=== PATIENT | female | born 1975 | race Caucasian/White ===

== ENCOUNTER → 2017-12-16 11:57 | Outpatient (REF) | payer OTHER, SELFPAY ==
[2017-12-16 19:16] LABS: TSH (W/Ref FT4) 2.02 uIU/mL (0.358-3.74)
== END ==
LOC: NCHCN 11:57
PROVIDERS: PCP Nurse Practitioner Family; Visit Provider Nurse Practitioner Family
DX: R53.83 Other fatigue (principal)
CPT/HCPCS: 84443

== ENCOUNTER 2018-09-22 09:51 | Outpatient (CLI) | payer OTHER, SELFPAY ==
[2018-09-22 12:19] LABS: BUN 12 mg/dL (7-18); CO2 28.1 mmol/L (21.0-32.0); CREATININE 0.94 mg/dL (0.55-1.02); Calcium 9.1 mg/dL (8.5-10.1); Cholesterol 228 mg/dL (50-200); Glucose 91 mg/dL (70-100); HDL Cholesterol 65 mg/dL (40-60); LDL CHOLESTEROL 147 mg/dL (<100); Triglyceride 45 mg/dL (30-150)
[2018-09-22 12:24] LABS: Anion Gap 7.9 mmol/L (3-11); Chloride 104 mmol/L (98-107); Potassium 4.5 mmol/L (3.5-5.1); Sodium 140 mmol/L (136-145)
== END 2018-09-22 10:11 ==
PROVIDERS: PCP Nurse Practitioner Family; Visit Provider Nurse Practitioner Family
DX: Z00.00 Encounter for general adult medical examination without abnormal findings (principal); Z13.228 Encounter for screening for other metabolic disorders; Z13.220 Encounter for screening for lipoid disorders
CPT/HCPCS: 36415; 80048; 80061; 83721

== ENCOUNTER 2020-03-15 06:26 | Day surgery (SDC) | payer OTHER, SELFPAY ==
[2020-03-15 06:36] VITALS: BP 116/63; PULSE 89; RESP 16; TEMP 36.2; O2SAT 100
[2020-03-15] MEDS: Lactated Ringers 1,000 ML 80 ML IV (06:57)
--- NOTE | 2020-03-15 07:09 | PDOC.DSDIS_ITS ---
Discharge Plan Disposition Patient Disposition: HOME Condition: Good Discharge Details Reason For Visit: Colonoscopy Attending Provider: Yuliana Mcgraw Primary Care Provider: Keisha Graves Home Meds and New Rx's Prescriptions: Continued multivitamin Tablet 1 tab PO DAILY RF: 0 Discharge Instructions Additional Instructions: Findings: Two rectal polyps were removed. My office will contact you with biop sy results. Rare diverticulosis pockets were noted. Follow up: Plan for a colonoscopy in 5 years pending biopsy results. Please call if you develop: fevers >101.5 Nausea or Vomiting Abdominal pain that is not transient DAY SURGERY UNIT POST COLONOSCOPY INSTRUCTIONS 1. Because there will be medication in your system for the next 24 hours, you may feel a little sleepy. Your coordination will be affected. Therefore: a. Do not drive or operate dangerous equipment for 24 hours. b. Do not drink alcohol beverages for 24 hours (not even beer). c. Plan to go home and rest for the day. 2. Generally there are no restrictions on your activity after a day or so has gone by, but you may feel a bit fatigued for a few days. 3 After you arrive home you may have a light meal and return to a normal diet as you can tolerate it without feeling sick to your stomach. 4. After surgery, you may feel pain or discomfort. This should be only transient, but if it persists please contact your doctor. 5. If there are any questions regarding the findings of your procedure, please feel free to contact your doctor. 6. If you are unable to contact your doctor with a problem, contact the hospital at [phone]. 7. Continue all your regular medications unless directed otherwise. I understand the above instructions and have no questions. Signature of Patient or Responsible Adult Escort Date/Time Name of Responsible Adult Escort Signature of Nurse Date/Time Activity:: Activity as Tolerated Diet:: As Tolerated Discharge Orders Discharge Orders: Discharge Order (Routine); Ordered 03/15/20 Ordered By: Yuliana Mcgraw DS: Diagnosis Discharge Diagnosis (1) Rectal polyp: Status: Acute (2) Diverticulosis: Status: Acute
--- NOTE | 2020-03-15 07:10 | W.COLOREPORT ---
Colonoscopy Report Date of procedure: 03/15/20 Pre-op diagnosis general: FH rectal mass Post-op diagnosis procedure note: other (Rectal polyps, diverticulosis) Procedure: Colonoscopy with cold forceps polypectomy Surgeon: Yuliana Mcgraw Anesthesia proc note operative: MAC Indications: This 45 year old woman presents for her first colonoscopy. She had no symptoms. Her father had a rectal mass removed with colostomy placement. She is not certain if this was malignant. Procedure Description: The patient was placed in the left Wolf position. Propofol was titrated to sedation. Digital rectal examination revealed no abnormalities. The scope was advanced to the cecum without difficulty. The ileocecal valve and appendiceal orifice were clearly identified. The ileocecal valve was intubated to reveal a normal distal ileum. The prep was good. The scope was slowly withdrawn over the course of greater than 6 minutes with no abnormalities seen in the ascending, transverse, descending, sigmoid colon. A few diverticulosis pockets were noted in the sigmoid. In the rectum, two diminuitive polyps that appeared hyperplastic were removed with the cold forceps and sent in the same specimen container. The rectum was otherwise normal including on retroflexed view. The patient tolerated the procedure well and was stable to recovery. Plan for colonoscopy in 5 years based on family history.
--- NOTE | 2020-03-15 07:31 | BOWEL_PTH ---
PATIENT: Idalmis Bryant LOC: [facility] U#:[id number] AGE/SX: 45/F ROOM: RE03/15/[address]: Yuliana Mcgraw MD : 1975 BED: DIS: 03/15/2020 SPEC #: [id number] RECD: 03/15/20 09:04 STATUS: BARRY REHoward #: [id number] BARRY: 03/15/20 07:[address]: Yuliana Mcgraw DEPT: Surgical Specimen RECD BY: Ana Montoya ENTERED: 03/15/20 09:05 SP TYPE: Bowel OTHR DR: Keisha Graves Tissues: 1 - BIOPSY BOWEL Procedures: GROSS AND MICRO LEVEL 4 Comments: [id number] ([id number] [facility] [place]#)
[2020-03-15 08:10] VITALS: BP 103/53; PULSE 70; RESP 18; TEMP 36.5; O2SAT 100
== END 2020-03-15 08:52 | disposition home or self-care (01) ==
PROVIDERS: PCP Nurse Practitioner Family; Visit Provider Surgery
PROC: 0DJD8ZZ Inspection of Lower Intestinal Tract, Via Natural or Artificial Opening Endoscopic (ICD-10-PCS; CPT 45378; principal; 2020-03-15 07:30)
DX: Z12.11 Encounter for screening for malignant neoplasm of colon (principal); Z80.0 Family history of malignant neoplasm of digestive organs; K57.30 Diverticulosis of large intestine without perforation or abscess without bleeding; K62.1 Rectal polyp
CPT/HCPCS: 45380; 81025; 88305

== ENCOUNTER 2020-09-16 01:58 | Outpatient (CLI) | payer OTHER, SELFPAY ==
--- NOTE | 2020-09-16 15:43 | DI.MAMMO_ITS ---
Exam(s) MAMMO SCREENING EXAM: MAMMO SCREENING CLINICAL HISTORY: SCREENING, Z12.39. TECHNIQUE: Bilateral full field digital CC and MLO mammographic images were obtained with 3D tomosyn thesis and utilizing computer aided detection (CAD). COMPARISON: Prior outside mammogram performed April 2019 FINDINGS: Fibroglandular tissue pattern is again noted be dense, this decreasing sensitivity mammogram for find ing hidden underlying lesions. Asymmetric tissue posteriorly in left breast is noted, more evident than on prior studies. There are no new obvious spiculated masses nor malignant-appearing microcalcification groups in eithe r breast. No new significant architectural distortion or skin thickening-traction. IMPRESSION: Dense bilateral fibroglandular tissue. Slightly asymmetric tissue posteriorly in left breast. Recom mend bilateral screening breast ultrasound. BI-RADS Category 0 - Assessment Incomplete: Need additional imaging evaluation, specifically bilatera l complete screening breast ultrasound Breast Density - Category C - Heterogeneously dense Breast density Category C or D implies that the patient has dense breast tissue. Dense breast tissue can make it harder to find cancer on a mammogram. Dense breast tissue is also associated with an incr eased risk of breast cancer. This information about the result of the mammogram report was provided to the patient to raise their awareness. Use this report when you speak with the patient about their risks for breast cancer, which includes their family history. At that time, you may recommend additional screening tests (Ultrasoun d or MRI) as these tests may add significant information. A negative radiographic report should not delay biopsy if a dominant or clinically suspicious mass is present. Up to ten percent of cancers are not identified on mammography. A negative report may reinforce clinical impression. Adenosis and dense breasts may obscure an underlying neoplasm. False positive reports average 6 to 10%. Patient will receive a letter notifying them of these results.
== END 2020-09-16 02:18 ==
PROVIDERS: PCP Nurse Practitioner Family; Visit Provider Nurse Practitioner Women's Health
DX: Z12.31 Encounter for screening mammogram for malignant neoplasm of breast (principal)
CPT/HCPCS: 77063; 77067

== ENCOUNTER 2021-04-11 02:49 | Outpatient (CLI) | payer OTHER, SELFPAY ==
[2021-04-11 09:14] LABS: Abs Immature Grans 0.01 10^3/uL (0.0-0.06); Absolute Basophil Count 0.03 10^3/uL (0.0-0.2); Absolute Eosinophil Count 0.03 10^3/uL (0.0-0.7); Absolute Lymphocyte Count 1.55 10^3/uL (1.2-3.4); Absolute Monocyte Count 0.36 10^3/uL (0.1-0.8); Absolute Neutrophil Count 2.59 10^3/uL (1.2-6.7); Basophils % 0.7; Eosinophils % 0.7; HGB 11.9 g/dL (11.2-15.7); Immature Grans % 0.2; Lymphocytes % 33.9; MCH 31.7 pg (27.0-33.0); MCHC 33.1 % (32.0-36.0); MPV 10.2 fL (8.0-11.0); Monocytes % 7.9; Neutrophils % 56.6; Nucleated RBC 0 %; Platelet Count 229 10^3/uL (130-400); RBC 3.75 10^6/uL (3.93-5.22); RDW 12.3 % (11.7-14.6); RDW-SD 43.3 fL; WBC 4.57 10^3/uL (4.4-10.8)
[2021-04-11 09:15] LABS: ESR 1 mm/hr (0-20)
[2021-04-11 10:23] LABS: C-Reactive Protein < 0.05 mg/dL (0.0-0.3)
[2021-04-11 18:01] LABS: Rheumatoid Factor <8.6 IU/mL (<12.0)
[2021-04-14 11:18] LABS: Lyme Ab w Rflx to Lyme Confirm Negative (Negative)
[2021-04-14 15:49] LABS: ANA Interpretation Negative (Negative)
== END 2021-04-11 02:50 | disposition home or self-care (01) ==
LOC: LBO 02:50
PROVIDERS: PCP Nurse Practitioner Family; Visit Provider Optometrist
DX: H20.13 Chronic iridocyclitis, bilateral (principal)
CPT/HCPCS: 36415; 85652; 85025; 86038; 86140; 86431; 86618

== ENCOUNTER → 2021-11-12 01:39 | Outpatient (CLI) | payer OTHER, SELFPAY ==
--- NOTE | 2021-11-12 | DI.MAMMO_ITS ---
Exam(s) MAMMO SCREENING EXAM: MAMMO SCREENING CLINICAL HISTORY: SCREENING FOR BREAST CANCER, Z12.31 TECHNIQUE: Mammograms were interpreted according to the usual protocol including computer analysis w Panève CAD system, tomosynthesis and C-view imaging. COMPARISON: 2018 through 2020 FINDINGS: The breasts are composed of heterogeneously dense fibroglandular densities, Breast Density category C . No suspicious masses or suspicious microcalcifications are seen. There is mild scarring related to b ilateral breast reduction. No skin thickening or abnormal axillary lymph nodes are seen. There has been no significant change from prior exams. IMPRESSION: BI-RADS Category 1, Negative mammogram. Yearly screening mammography is recommended. Breast Density Category C, heterogeneously Dense. The mammogram demonstrates the patient's breast tissue is dense. Dense breast tissue is very common a nd is not abnormal but dense breast tissue can make it harder to find cancer on a mammogram. Also, de nse breast tissue may increase breast cancer risk. This information about the result of the mammogram report was provided to the patient to raise their awareness. Use this report when you speak with the patient about their risks for breast cancer, which includes their family history. At that time, you may recommend additional screening tests (Ultrasound or MRI) as they might be useful based on their r isk. A negative radiographic report should not delay biopsy if a dominant or clinically suspicious mass is present. Up to ten percent of cancers are not identified on mammography. A negative report may reinforce clinical impression. Adenosis and dense breasts may obscure an underlying neoplasm. False positive reports average 6 to 10%.
== END ==
PROVIDERS: PCP Nurse Practitioner Family; Visit Provider Nurse Practitioner Women's Health
DX: Z12.31 Encounter for screening mammogram for malignant neoplasm of breast (principal)
CPT/HCPCS: 77063; 77067

== ENCOUNTER 2022-09-14 19:22 | Outpatient (REF) | payer OTHER, SELFPAY ==
[2022-09-14 16:50] LABS: Abs Immature Grans 0.01 10^3/uL (0.0-0.06); Absolute Basophil Count 0.08 10^3/uL (0.0-0.2); Absolute Eosinophil Count 0.24 10^3/uL (0.0-0.7); Absolute Lymphocyte Count 2.46 10^3/uL (1.2-3.4); Absolute Monocyte Count 0.43 10^3/uL (0.1-0.8); Absolute Neutrophil Count 2.67 10^3/uL (1.2-6.7); Basophils % 1.4; Eosinophils % 4.1; HCT 35.5 % (36.0-46.0); Immature Grans % 0.2; Lymphocytes % 41.8; MCHC 33.8 % (32.0-36.0); MCV 95 fL (80-95); MPV 11.5 fL (8.0-11.0); Monocytes % 7.3; Neutrophils % 45.2; Platelet Count 241 10^3/uL (130-400); RBC 3.75 10^6/uL (3.93-5.22); RDW 12.2 % (11.7-14.6); RDW-SD 42.3 fL; WBC 5.89 10^3/uL (4.4-10.8)
== END 2022-09-14 19:23 | disposition home or self-care (01) ==
LOC: NCHCN 19:22
PROVIDERS: PCP Nurse Practitioner Family; Visit Provider Nurse Practitioner Family
DX: R21 Rash and other nonspecific skin eruption (principal); L98.8 Other specified disorders of the skin and subcutaneous tissue
CPT/HCPCS: 85025

== ENCOUNTER 2023-09-17 09:48 | Emergency (ER) | payer OTHER, SELFPAY ==
[2023-09-17 09:54] VITALS: BP 167/101; PULSE 101; RESP 20; O2SAT 99
--- NOTE | 2023-09-17 10:32 | ED.GENADUL_ITS ---
Discharge Plan Disposition Patient Disposition: Home Condition: Stable Discharge Details Clinical Impression: Depression Primary Care Provider: Unknown,Unknown ED Provider: Marty Johnson Home Meds and New Rx's Prescriptions: Continued multivitamin Tablet 1 tab PO DAILY Discharge Instructions Instructions: Depression (ED) Additional Instructions: Please contact your primary care physician to arrange follow-up. Call today. Please follow-up with your therapist. Call today. Please follow safety plan as discussed with [facility] crisis screener - safety calls will be performed. Return to the ER at any time should you need help and immediately for any worsening or new concerning symptoms. HPI General Mode of arrival: ambulatory . Date/Time Provider Initiated Documentation: 09/17/23 10:13 . Limitations to Documentation: no limitations . Information obtained by: patient . HPI Narrative: 48yo female here with depression and suicidal thoughts. Patient notes significant life stressors including the loss of her father in June and going through divorce and more recently challenging relationship dynamic with her daughter. She notes depression is severe recently. She has had thoughts of taking her life. She notes that she feels tired and that she has thoughts that it would be good to just not wake up. She denies toxic ingestion. She does note that she has a loaded gun in her bedroom and is thought about shooting herself but states she would not because it is too messy and she did not want people to have to clean up. Patient does have a therapist who she sees regularly but does note she has not fully disclosed information to her. Related Data Home Medications Medication Instructions Recorded Confirmed multivitamin 1 tab PO DAILY 01/31/20 09/17/23 Allergies Allergy/AdvReac Type Severity Reaction Status Date / Time Tylenol #3 Allergy Severe SOB Uncoded 09/17/23 09:57 General Stated Complaint: PsychEval DONYA: 2 Exam Const General: cooperative and in distress (Tearful) Orientation: alert HENMT Mouth: moist mucous membranes Eyes Conjunctivae: normal conjunctivae Sclera: normal sclerae Resp Auscultation: clear to auscultation bilaterally, no rales, no rhonchi and no wheezes Cardio Rate: regular rate and not tachycardic Rhythm: regular rhythm Skin General skin exam: no rashes or lesions noted Neuro General: patient alert, patient awake, patient oriented x3 and tone normal Psych Appearance: grossly normal Mental Status: mental status grossly normal and other (Depressed) Speech and Movement: speech and movement normal Mood: other (Depressed) Affect: sad and other Attitude: cooperative Thought Process: normal Thought Content: suicidality Insight: insight good Course Vital Signs Vital signs: Vital Signs Pulse 101 H 09/17/23 09:54 Respiratory Rate 20 09/17/23 09:54 Blood Pressure 167/101 H 09/17/23 09:54 Pulse Oximetry 99 09/17/23 09:54 Pulse 101 H 09/17/23 09:54 Respiratory Rate 20 09/17/23 09:54 Respiratory Effort Normal, Non-Labored 09/17/23 09:58 Blood Pressure 167/101 H 09/17/23 09:54 Blood Pressure Position Sitting 09/17/23 09:54 Pulse Oximetry 99 09/17/23 09:54 Oxygen Delivery Method Room Air 09/17/23 09:54 Oxygen Flow Rate 0 09/17/23 09:54 Pain Level 0 09/17/23 09:54 Medical Decision Making 1040? 48-year-old female with no significant medical problems, here with severe depression and suicidal thoughts. Patient has significant life stressors including loss of her father a few months ago as well as going through her divorce. Patient was medically screened and no acute medical condition identified. Patient stable for psychiatric screening. I have spoken with [facility] crisis screener and requested consultation and evaluation. -- Patient was evaluated by crisis screener and initial plan for safety planning with discharge. I spoke with the patient and offered telepsychiatry for evaluation and treatment options. Patient agreeable to plan. 1609 --patient seen by telepsychiatrist Dr. Burgos. I spoke to Dr. Burgos and discussed her evaluation. She feels patient is high risk and would benefit from inpatient psychiatric treatment. She discussed this with the patient who is agreeable. Plan for voluntary placement. I called crisis screener, Shazia, and updated her as to course and recommendations she will seek inpatient bed. . Quality:SDOH Health Related Social Needs: No Data to Display PFSH All Active Problems (Updated 09/17/23 @ 12:16 by Marty Johnson MD) Depression (Chronic) Colon polyp, hyperplastic (Acute ~03/2020) Diverticulosis (Acute) Rectal polyp (Acute) Encounter for screening for other viral diseases (Acute) Medical History 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 denies Family history of colonic polyps Surgical History History of bilateral breast reduction surgery Social History Smoking/Tobacco Use Status: Never Smoking risk assessment performed?: Yes Alcohol Intake: current Alcohol Intake frequency: a few times a week Drug use: Occasionally Substance use type: marijuana Do you feel safe at home: Yes Do you feel safe in your relationship?: Yes
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
--- NOTE | 2023-09-17 15:35 | W.TELEPSYCH ---
Date of service: 09/17/23 Time of Service: 14:40 Summary Note PSYCHIATRY CONSULT NOTE: INITIAL EVALUATION Name:?Idalmis Bryant :?1975 Location of the patient:?[facility] ED Consulting Array Clinician:?Justina Love Location of the clinician:?[facility] 48-year-old female, with history of anxiety disorder, history of suicidal ideation, remote history of self-injurious behavior, past aggressive behavior, with no current excessive drug use, no past psychiatric hospitalizations, self-referred via walk-in for suicidal ideation. Pt has reported multiple recent stressors and increasingly severe depression including suicidal thoughts. Pt divulged plan to shoot self but reported that would be too messy and does not want people to have to clean it up. On exam, pt continues to endorse SI. She has not attempted to harm self at this point but reports multiple times in recent weeks she has picked up a loaded weapon and contemplated using it. Pt endorses frequent tearfulness, poor appetite/weight loss, increased anxiety with panic symptoms at times and was unable to perform work duties today. Pt has multiple ongoing stressors and though she has an outpatient therapist, she has not been forthcoming regarding level of symptoms. Patient is at elevated risk of danger to self. Patient presently meets criteria for inpatient psychiatric hospitalization. Working Diagnoses:?F33.9 Major depressive disorder; recurrent; unspecified; F41.9 Anxiety disorder; unspecified ; F43.23 Adjustment disorder with mixed anxiety and depressed mood CPT Codes:?98616 - Psychiatric Diagnostic Evaluation with Medical Services PLAN Disposition:?Voluntary admission when medically stable. Patient understands recommendation for psychiatric admission and consents. Re-consult psychiatry/screening if patient requests discharge. Observation level ? Psychiatric 1:1 needed??Initiate psych 1:1 OR Close observation per hospital protocol Pharmacological:? Recommend Klonopin 0.5 mg BID prn anxiety/panic, pt reports this med has worked well for her in the past and was well-tolerated. No further changes at this time. Is patient psychotic? - No Follow up needed while in the hospital??As needed for further management Other:? Recommend inpatient psych team work with local law enforcement or family to have firearms in the patient's home removed. If questions arise about the psychiatric care of this patient, please call the [facility]?to request a follow-up consult. ?Please do not contact me individually through the EMR chat as I am not?regularly logged on to?this system. The psychiatrist for the follow-up visit may be a different psychiatrist Discussed plan with onsite retail sales teammate:?Yes - Dr. Marty Johnson MD HISTORY This evaluation was conducted remotely with the assistance of onsite staff via HIPAA-compliant video call. Patient consented to proceed with the telehealth visit. Requested by:?Marty Johnson MD Sources of information:?Patient, medical record History of Present Illness:? 48-year-old female, living with son, , employed, with history of anxiety disorder, history of suicidal ideation, remote? self-injurious behavior, past aggressive behavior, with no current excessive drug use, no past psychiatric hospitalizations, self-referred via walk-in for suicidal ideation. Pt has reported multiple recent stressors and increasingly severe depression including suicidal thoughts. Pt divulged plan to shoot self but reported that would be too messy and does not want people to have to clean it up. UDS not ordered, Alcohol not ordered. In the hospital, patient has been in behavioral control with no reported issues. On psychiatric evaluation, patient is cooperative, able to give clear history but is notably despondent and somewhat guarded. Pt reports she was at work today and couldn't stop feeling sad, couldn't stop crying. Pt has had multiple recent stressors, lost father in June, going through a divorce which has been very difficult. Pt reports her adult daughter has also been distancing herself. Pt has therefore been feeling more depressed and anxious. Pt states, I guess I am an anxious person, usually just tries to manage it herself but having more trouble recently. Pt reports trouble falling asleep and also not wanting to eat anything, I still do but I don't want to. She has lost about 12 lbs. Pt reports decreased interest in things, still active and usually exercise helps her but no longer working. Pt has at times impulsively spent money and that happened again recently. Pt did not volunteer information about suicidal thoughts but upon direct inquiry, she does endorse suicidal thoughts for about the past 3 weeks, She has had such thoughts before but has been a very long time. When asked whether the thoughts have increased or become more intense, pt states that up until recently she had been living alone so she has been sleeping with a loaded gun in her bedroom for protection. However, in the last couple of weeks she has picked it up and looked at it. guess I have thought about it more. Pt confirms that she was contemplating suicide while holding the gun. Pt reports difficulty reaching out for help, has not fully disclosed extent of her symptoms to her therapist and does not feel comfortable reaching out to friends. Pt denies homicidal ideations, denies hallucinations. Pt is agreeable to inpatient psychiatric admission. Pt is also agreeable to have prn anxiety medication, reports Klonopin has helped in the past.. Collateral Contacted No-- patient meets criteria for inpatient hospitalization. PSYCHIATRIC REVIEW OF SYSTEMS (symptoms in past two weeks) Pertinent Positives:?depressed mood/anhedonia/hopelessness/insomnia/poor appetite/irritability/anxiety/impulsivity Pertinent Negatives:?no aggressive behavior/no agitation/no auditory hallucinations/no visual hallucinations/no panic attacks PSYCHIATRIC HISTORY Past Psychiatric Diagnoses/Problems:?anxiety disorder Psychiatric Treatment:?Hospitalizations:?no past psychiatric hospitalizations ???Other Past treatment:?treatment with PCP, most recently took Lexapro, seemed to help some but stopped it because she did not think she needed it anymore and does not like to take medications in general ???Current treatment:?therapy, Sessions twice per month Drug/Alcohol History ???Current excessive drug/alcohol use:?none ???Past excessive drug/alcohol use:?none ???Drug/alcohol use comment:?Occasional marijuana edibles, about 1-2 times per month. One alcoholic beverage per week. ???Treatment:?none ???Withdrawal symptoms:?none ???UDS results:?UDS not ordered ???BAL results:?not ordered Stressors:?recent loss, going through divorce, daughter distancing herself from pt Trauma:?unknown Family Psychiatric History:?suicide attempts, (son) HEALTH HISTORY Medical Problems:?h/o diverticulosis, colon polyps Is patient linked with PCP??yes Psychiatric and other clinically relevant medications:?none Allergies/Adverse Medication Reactions:?Tylenol #3 Physical Findings:?hypertensive DEMOGRAPHICS/SOCIAL HISTORY Gender:?female Living Situation:?living with family, 22 y/o son lives with pt Relationship Status:?, going through divorce Education:?college graduate 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 Primary Suicide Screening (PSS-3) 1. In the past two weeks, have you felt down, depressed, or hopeless??YES 2. In the past two weeks, have you had thoughts of killing yourself??YES 3. In your lifetime, have you ever attempted to kill yourself??NO 3a. Within the past 6 months??NO ESS-6 Secondary Screen (If #2 is yes or #3a is yes within the past 6 months, then complete secondary screen) 1. Positive on PSS-3 questions 2 & 3 ? active suicidal ideation with a past attempt??NO 2. Have you been thinking about how you might kill yourself??YES 3. Have you had some intention of acting on your thoughts??YES 4. Lifetime psychiatric hospitalization??NO 5. Has drinking or substance abuse ever been a problem for you??NO 6. Current irritability, agitation, or aggression??YES PSS-3/ESS-6 Secondary Screen Scoring:?Severe PSS-3/ESS-6 Scoring Interpretation Legend PSS-3 screen incomplete [Blank PSS-3 questions #2 OR #3a] PSS-3 screen unable to assess [Unable to Assess responses on PSS-3 questions #2 AND #3a] Mild [No current attempt AND No suicide plan or intent AND Score (0-2)] Moderate [No current attempt AND Active suicidal ideation with plan or intent (not both) OR Score (3-4)] Severe [Current attempt OR Suicide plan and intent OR Score (5-6)] HI/Violence/Property Destruction:?Yes has pushed before when very upset Access to Firearms:?loaded and unlocked firearms Grave disability/Poor self-care:?no Psychosis:?No Protective Factors:?engaged in work or school High Utilization Criteria:?none Signs of Secondary Gain:?none MENTAL STATUS EXAM Appearance and Attire:? Well groomed, Appears stated age, Wearing hospital scrubs Psychomotor agitation:? No abnormality Attitude and behavior:? Cooperative, though despondent with poor eye contact (mostly looking up or down); somewhat guarded Speech:? Soft, Increased latency Mood:? Dysthymic Affect:? Restricted Thought Process:? Linear, Goal-directed Thought content:? Suicidal ideation, No homicidal ideation, No delusions Perception:? No hallucinations Intelligence:? Average Abstraction:? Appropriate Language:? No abnormality Orientation:? Oriented x 4 Sensorium:? Normal Knowledge:? Appropriate for education and socioeconomic status Memory:? Intact Insight:?Limited Judgment:? Impaired in response and decision making SUMMARY RISK ASSESSMENT Current Suicide Risk Elevated??PSS-3/ESS-6 Scoring: Severe? Current Violence Risk Elevated??No Issues with ability to care for self.?No Justina Love, DO Psychiatrist, [facility]
[2023-09-17 16:37] LABS: *AMPHETAMINES SCREEN URINE Negative (Negative); *BARBITURATES SCREEN URINE Negative (Negative); *BENZODIAZEPINES SCREEN URINE Negative (Negative); Cannabinoids THC Positive (Negative); Cocaine Screen,Urine Negative (Negative); METHADONE URINE SCREEN Negative (Negative); OPIATES URINE SCREEN Negative (Negative)
[2023-09-17 16:40] LABS: Tricyclic Antidepressants Negative (Negative)
[2023-09-17 17:22] VITALS: BP 111/72; PULSE 63; RESP 16; TEMP 36.6; O2SAT 98
[2023-09-17] MEDS: clonazePAM 0.5 MG TAB PO (17:33)
--- NOTE | 2023-09-17 18:51 | PDOC.CMSAFE ---
Date of service: 09/17/23 Time of Service: 18:51 Care Management Safety Plan Status Status: Voluntary Reason for Wait Reason for Wait: Inpatient Admission Safety Plan Safety Plan: VOLUNTARY FOR INPATIENT PSYCHIATRIC STABILIZATION.? Patient is appropriate in all interactions since arriving at [facility]; Pt has demonstrated appropriate coping and communication skills, has articulated his or her needs and concerns and is fully engaged during staff interactions. Idalmis met with MELISSA Mccray, and created a safety plan with close follow up with MELISSA in the community. She agreed to wait for a telepsych appointment which was already scheduled. The psychiatrist reported that Idalmis meets criteria for inpatient psychiatric treatment, which Idalmis agreed to. Per report, Idalmis has been struggling with SI recently after the loss of her father in June, a separation from her , and her adult daughter distancing herself from her. She has a firearm which she has contemplated using to end her life. She has supportive family, and lives with her adult son, who has secured the firearm, after discussing the plan with Idalmis. Safety plan has been established with patient, and care team, to adhere to patient goals, identify restrictions based on behavioral status, address nutrition, and determine allowed personal belongings, tools for hygiene and personal care. Determine level of activity including ambulation, level of supervision, visitors, and determine privileges based on behaviors and level of engagement by pt. SAFETY PLAN: 1. Will remain on suicide precautions, in paper clothes. 2. Will remain in Zone B under direct supervision of one-on-one staff at all times provided by [employer]; FABRICIO, CLIENT CARE SPECIALIST m1 armor crewman. 3. May have paper cups, plates, finger foods as well as a cardboard spoon with which to eat meals. 4. Follow [facility] Management of the Admitted Behavioral Health Patient policy. 5. Shower available in Zone B without restriction. 6. Personal belongings-soft items permitted at RN discretion. 7. Visitors- supportive family members, at RN discretion. 8. Activities: soft cart items approved per RN discretion. 9.? Bathroom available in Zone B without restriction. 10. Phone: incoming/outgoing calls permitted, limited to [facility] cordless phone at RN discretion. Due to VOLUNTARY status, if patient wishes to leave [facility], staff will contact [facility] Crisis Screener ([phone]) and Wind Site Manager ([phone]) as soon as possible. In the event of elopement, notify [facility] Police ([phone]). Patient is currently voluntarily at [facility] and seeking inpatient admission when a bed becomes available. [facility] Frontline Olive Packer will continue seeking placement. Please contact the Wind Site Manager ([phone]) and [facility] Olive Packer ([phone]) for any needed changes in the Safety Plan. Safety plan has been provided to interdepartmental care team.
--- NOTE | 2023-09-18 05:08 | NUR.NOTE ---
Addendum entered by Stacy Herndon 09/18/23 05:25: Update to say joe zamora Original Note: Between 0415 and 0500 patient talked with me in the hallway about her being and thinking she should stay single. She discussed having a son that is 22 yrs old that lives with her. She mentioned she is glad he lives with her as it is safe having him around so that she isn't alone. 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 She was very pleasant to talk with and appeared to be in good spirits this morning. She chuckled with me about how the cafeteria seems to always serve the same thing for breakfast most days and periodically changes days for friend toast and pancakes but that she usually orders eggs.
--- NOTE | 2023-09-18 05:26 | NUR.NOTE ---
Late entry, Between 414 and 050 patient talked with me in the hallway about her being and thinking she should stay single. She discussed having a son that is 22 yrs old that lives with her. She mentioned she is glad he lives with her as it is safe having him around so that she isn't alone. 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 She was very pleasant to talk with and appeared to be in good spirits this morning. She chuckled with me about how the cafeteria seems to always serve the same thing for breakfast most days and periodically changes days for sami toast and pancakes but that she usually orders eggs.
--- NOTE | 2023-09-18 05:36 | NUR.NOTE ---
Late entry, Between 414 and 050 patient talked with me in the hallway about her being and thinking she should stay single. She discussed having a son that is 22 yrs old that lives with her. She mentioned she is glad he lives with her as it is safe having him around so that she isn't alone. 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 She was very pleasant to talk with and appeared to be in good spirits this morning. She chuckled with me about how the cafeteria seems to always serve the same thing for breakfast most days and periodically changes days for hungarian toast and pancakes but that she usually orders eggs.
--- NOTE | 2023-09-18 07:03 | ED.PROG_ITS ---
Date of service: 09/18/23 Time of Service: 07:04 Medical Decision Making This patient stable throughout the night. Medications and. No interventions needed. Quality:[facility] Health Related Social Needs: No Data to Display Sign Out Sign Out Data: Sign Out Comment: Patient here for depression and suicidal ideation. Patient was seen by telepsychiatry and inpatient treatment recommended. Patient agreeable with this. Patient currently here on voluntary hold awaiting inpatient placement. Klonopin 0.5 mg twice daily as needed has been ordered as recommended by telepsychiatry Last updated by Marty Johnson MD at 09/17/23 17:18 Sign Out Comment: Pending: voluntary inpatient placement Has had tele psych and [facility] eval's Suicidal with gun at home no issues during my shift Last updated by Chantal Jack MD at 09/17/23 22:01 Discharge Plan Disposition Patient Disposition: Home Condition: Stable Discharge Details Clinical Impression: Depression Primary Care Provider: Unknown,Unknown ED Provider: Coy Kim Home Meds and New Rx's Prescriptions: Continued multivitamin Tablet 1 tab PO DAILY Discharge Instructions Instructions: Depression (ED) Additional Instructions: Please contact your primary care physician to arrange follow-up. Call today. Please follow-up with your therapist. Call today. Please follow safety plan as discussed with [facility] crisis screener - safety calls will be performed. Return to the ER at any time should you need help and immediately for any worsening or new concerning symptoms.
--- NOTE | 2023-09-18 07:10 | ED.PROG_ITS ---
Date of service: 09/18/23 Time of Service: 07:10 Medical Decision Making I received signout on this 48-year-old patient who is medically cleared in the emergency department voluntarily in the setting of multiple stressors. No active behavioral issues last shift. Will update documentation as clinically warranted and signed patient out to oncoming evening provider. 10:34 AM I spoke with Dr. Margo Lee from the [facility] who graciously agreed to accept the patient. The admission team will call us once a bed becomes available. 09/18 Late charting due to patient care. I signed transfer paperwork and this patient was transferred to the [facility] yesterday. Quality:[facility] Health Related Social Needs: No Data to Display Sign Out Sign Out Data: Sign Out Comment: Patient here for depression and suicidal ideation. Patient was seen by telepsychiatry and inpatient treatment recommended. Patient agreeable with this. Patient currently here on voluntary hold awaiting inpatient placement. Klonopin 0.5 mg twice daily as needed has been ordered as recommended by telepsychiatry Last updated by Marty Johnson MD at 09/17/23 17:18 Sign Out Comment: Pending: voluntary inpatient placement Has had tele psych and [facility] eval's Suicidal with gun at home no issues during my shift Last updated by Chantal Jack MD at 09/17/23 22:01 Sign Out Comment: Pending voluntary inpatient placement. Patient stable throughout the night. No interventions needed. If patient does want to leave, recommend reconnection with mental health prior to discharge. Last updated by Coy Kim DO at 09/18/23 07:11 Discharge Plan Disposition Patient Disposition: Psychiatric Hospital/Unit Specific Psychiatric Facility: [facility] Condition: Stable Discharge Details Clinical Impression: Depression Primary Care Provider: Unknown,Unknown ED Provider: Rodrigue Muir Home Meds and New Rx's Prescriptions: Continued multivitamin Tablet 1 tab PO DAILY Discharge Instructions Instructions: Depression (ED) Additional Instructions: Please contact your primary care physician to arrange follow-up. Call today. Please follow-up with your therapist. Call today. Please follow safety plan as discussed with [facility] crisis screener - safety calls will be performed. Return to the ER at any time should you need help and immediately for any worsening or new concerning symptoms. Discharge Data Discharge Date/Time-TO BE ENTERED AT DEPARTURE: 09/18/23 15:43
[2023-09-18 07:16] VITALS: BP 111/73; PULSE 80; RESP 16; TEMP 36.4; O2SAT 97
--- NOTE | 2023-09-18 17:26 | CMPROGNOTE_ITS ---
Date of service: 09/18/23 Time of Service: 17:26 Care Management Progress Note Progress Note Text Progress Note Text: JOVANNY received a call from [facility] clinician, who stated that Idalmis was offered a bed at [facility], pending MD to , RN to RN, and an insurance PA. Tami stated that she initiated the PA, and was awaiting a response. Later, JOVANNY was informed that the MD to and RN to RN had been completed, and the PA was approved. Sarah, ED community development manager, coordinated transport via [employer] [place], and she transferred to at 15:43. Idalmis was agreeable, and voluntarily seeking inpatient psychiatric treatment.
== END 2023-09-18 15:43 ==
PROVIDERS: Student in an Organized Health Care Education/Training Program; Emergency Provider Emergency Medicine
DX: R45.851 Suicidal ideations (principal); F33.9 Major depressive disorder, recurrent, unspecified; F41.9 Anxiety disorder, unspecified; F43.23 Adjustment disorder with mixed anxiety and depressed mood
CPT/HCPCS: 00123; 80307; 81025; 96127; 99285

== ENCOUNTER 2024-02-22 08:18 | Outpatient (CLI) | payer OTHER, SELFPAY ==
[2024-02-22 08:36] LABS: Calculated LDL 136 mg/dL (<100); Cholesterol 237 mg/dL (<200); HDL Cholesterol 93 mg/dL (40-60); Triglyceride 41 mg/dL (<150)
== END 2024-02-22 08:19 | disposition home or self-care (01) ==
LOC: LBO 08:18
PROVIDERS: Visit Provider Physician Assistant
DX: E78.5 Hyperlipidemia, unspecified (principal)
CPT/HCPCS: 36415; 80061

== ENCOUNTER → 2025-03-28 02:14 | Outpatient (CLI) | payer OTHER, SELFPAY ==
--- NOTE | 2025-03-28 | DI.MAMMO_ITS ---
Exam(s) MAMMO SCREENING EXAM: MAMMO SCREENING CLINICAL HISTORY: Z12.31 Screening. TECHNIQUE: Bilateral full field digital CC and MLO mammographic images were obtained with 3D tomosynthesis and utilizing computer aided detection (CAD). COMPARISON: Prior mammograms were reviewed. FINDINGS: There has been no significant change in the appearance and distribution of the fibroglandular tissue which is again noted be heterogeneously dense.. There are no CAD designations. There are no obvious new spiculated masses nor malignant appearing microcalcification groups. There is no significant architectural distortion nor skin thickening-retraction. IMPRESSION: No radiographic evidence of malignancy. BI-RADS Category 1 - Negative Breast Density - Category C - The breast are heterogeneously dense, which may obscure small masses. Breast density Category C or D implies that the patient has dense breast tissue. Dense breast tissue can make it harder to find cancer on a mammogram. Dense breast tissue is also associated with an increased risk of breast cancer. This information about the result of the mammogram report was provided to the patient to raise their awareness. Use this report when you speak with the patient about their risks for breast cancer, which includes their family history. At that time, you may recommend additional screening tests (Ultrasound or MRI) as these tests may add significant information. A negative radiographic report should not delay biopsy if a dominant or clinically suspicious mass is present. Up to ten percent of cancers are not identified on mammography. A negative report may reinforce clinical impression. Adenosis and dense breasts may obscure an underlying neoplasm. False positive reports average 6 to 10%. Patient will receive a letter notifying them of these results.
== END ==
PROVIDERS: PCP Physician Assistant; Visit Provider Physician Assistant
DX: Z12.31 Encounter for screening mammogram for malignant neoplasm of breast (principal); R92.323 Mammographic fibroglandular density, bilateral breasts
CPT/HCPCS: 77063; 77067

== ENCOUNTER 2025-04-13 06:14 | Day surgery (SDC) | payer OTHER, SELFPAY ==
--- NOTE | 2025-04-12 19:42 | W.PM.DSUDISC ---
Date of service: 04/13/25 Discharge Plan Disposition Patient Disposition: Home Condition: Good Discharge Details Reason For Visit: screening colonoscopy Attending Provider: Jed Coleman Primary Care Provider: Primitivo Levy Home Meds and New Rx's Prescriptions: No Action multivitamin Tablet 1 tab PO DAILY Discharge Instructions Instructions: Colon polyps, Diverticulosis Additional Instructions: Consuelo, I hope you feel great this afternoon. Things went very smoothly. Your prep was outstanding. I did find, and removed 2 polyps today. These are both extremely small, and neither of them appear to be anything to worry about. I took both out today, and I will send them both to the pathologist for them to review. With your family history, I recommend at least a 5-year interval. It is hard for me to imagine that the polyps would change that, but as soon as I have the report, I will certainly let you know. Incidentally, there is also a little bit of diverticulosis. Eat your fruits and veggies. Also, thanks for all the help that you give me every day at work. I really appreciate having you around as colleague and friend. 1. If tolerated, consume a soft, low fiber diet for 1-2 days. 2[address] Do not drive, drink alcohol, operate machinery, make critical decisions, or do activities that require coordination or balance for 24 hours. 3. Because air was put into your colon during the procedure, expelling air from your rectum (passing gas or farting) is normal. 4. You may not have a bowel movement for 1-3 days because of the colonoscopy prep. This is normal. 5. Go directly to the emergency room if you notice any of the following: Develop chills (warm to touch), or if you have a thermometer and your temperature is above 101 Difficulty breathing or difficultly swallowing Persistent vomiting Severe abdominal pain, other than gas cramps Severe chest pain Black, tarry stools Any bleeding ? exceeding one tablespoon 6. Call your physician if the site where your intravenous was started becomes red, swollen, painful, and warm to touch. 7. Your physician has reviewed your pre-procedure medications. Please continue to take those medications as previously ordered. You will be given specific information/education regarding any changes to your medications before leaving. Stand Alone Forms: Anesthesia Discharge Inst., [place] ([place]), Portal Information Activity:: Activity as Tolerated Diet:: As Tolerated Discharge Orders Discharge Orders: Discharge Order (Routine); Ordered 04/12/25 Ordered By: Jed Coleman DS: Diagnosis Discharge Diagnosis (1) Encounter for screening colonoscopy: Status: Acute Asessment and Plan: Follow-up on polypectomy results
--- NOTE | 2025-04-12 19:42 | W.COLOREPORT ---
Date of service: 04/13/25 Time of Service: 08:01 Colonoscopy Report Date of procedure: 04/13/25 Pre-op diagnosis general: screening colonoscopy Post-op diagnosis procedure note: other (Colon polyps, diverticulosis) Procedure: colonoscopy with polypectomy Surgeon: Jed Coleman Anesthesia Type: General:No Airway Estimated blood loss (mL): 5 Pathology: other (0.25 cm rectal polyp, 0.25 cm flat polyp at 25 cm) Complications: None Disposition: same day Indications: Idalmis is a 50 year old woman with a family history of colon cancer. She needs a screening colonoscopy Prep: Miralax/Dulcolax Procedure Start Time: 07:31 Procedure End Time: 07:47 Retraction Time: 11 Findings: Sigmoid diverticulosis, colon and rectal polyps Procedure Description: After the induction of anesthesia, and with Consuelo in left lateral decubitus position, I began by performing an external anorectal exam.? Perineum and skin were normal, as was the anal verge.? Next, I performed a digital rectal exam.? I did not appreciate any abnormal findings.? Next, I advanced a colonoscope into the rectal vault.? I performed retroflexion.? This appeared normal. In the lower portion of the rectal vault was a 0.25 cm flat polyp. This was removed with cold forceps. There was minimal bleeding.? Using irrigation, I then advanced the colonoscope beyond the rectal folds and into the sigmoid colon before advancing towards the cecum.? The quality of the prep was outstanding.? The scope was noted to be in the cecum by identification of the ileocecal valve and appendiceal orifice.? I then began withdrawing the colonoscope using repeated irrigation as necessary for full evaluation of the colonic mucosa. Around 45 cm past the anal verge was some scattered sigmoid diverticulosis. At 25 cm past the anal verge was another 0.25 cm flat polyp. This was also removed without incident using cold forceps. Once the scope was withdrawn to the level of the rectum, great care was taken to examine portions of the rectal folds.? Finally, the scope was withdrawn and the patient was brought to the same-day surgery recovery unit as the anesthetic wore off. ?The findings and instructions were shared with the patient prior to discharge. [place] Bowel Prep [place] Bowel Prep Right Colon: 3 Left Colon: 3 Transverse Colon: 3 Total Score: 9
[2025-04-13 06:21] VITALS: BP 99/73; PULSE 63; RESP 14; TEMP 36.2; O2SAT 100
[2025-04-13] MEDS: Lactated Ringers 1,000 ML 80 ML IV (06:46)
--- NOTE | 2025-04-13 07:07 | W.ANESPRE ---
General Info Date of Service Date Performed: 04/13/25 Height: 5 ft 4 in Weight: 63 kg Body Mass Index (BMI): 23.8 Surgical Procedure: Operation Date: 04/13/25 07:35 Proposed Procedure Side Surgeon p Olivia Coleman MD Meds Allergies and Home Medications Allergies Allergy/AdvReac Type Severity Reaction Status Date / Time Tylenol #3 Allergy Severe SOB Uncoded 04/10/25 13:35 Home Medication ?Medication ?Instructions ?Recorded multivitamin 1 tab PO DAILY 01/31/20 Held on 04/10/25. Instructions: Pt Stopped/Never Started Current Visit Medications: Current Medications Generic Name Dose Route Start Last Admin Trade Name Freq PRN Reason Stop Dose Admin Ringer's Solution 1,000 mls @ 80 mls/hr 04/13/25 06:00 04/13/25 06:46 IV 04/13/25 23:59 80 mls/hr INFUSION ANTIONE Administration Sodium Chloride 0 ml 04/13/25 06:00 Normal Saline Flush 10 Ml Syr IV 04/13/25 23:59 PRN PRN Sodium Chloride 0 ml 04/13/25 06:00 Normal Saline 10 Ml Vial IJ 04/13/25 23:59 DIRECTED PRN Sterile Water 0 ml 04/13/25 06:00 Water,Injection,Sterile 10 Ml Vial IJ 04/13/25 23:59 DIRECTED PRN PFSH Active Problems Active Problems: Problem Status Onset Code Encounter for screening colonoscopy Acute Z12.11 Colon polyp, hyperplastic Acute ~03/2020 K63.5 Diverticulosis Acute K57.90 Rectal polyp Acute K62.1 Encounter for screening for other viral diseases Acute Z11.59 Medical History Medical History 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 denies Family history of colonic polyps Surgical History Surgical History History of colonoscopy with polypectomy (~03/2020) History of bilateral breast reduction surgery Tobacco Smoking/Tobacco Use Status: Never Alcohol Alcohol Intake: current Alcohol intake frequency: a few times a week Alcohol type: beer and wine Substance Use Substance use: Occasionally Substance use type: marijuana Details: edible THC. Last was 5 days ago. Vital Signs and Lab Results Vital Signs Most Recent Vital Signs in EMR: Most Recent Vital Signs Temp Pulse Resp BP Pulse Ox 36.2 C L 63 14 99/73 L 100 04/13/25 06:21 04/13/25 06:21 04/13/25 06:21 04/13/25 06:21 04/13/25 06:21 Point of Care Results Point of Care Results: POC- Test(urine) Negative 04/13/25 06:48 Anesthesia Assessment and Plan Anesthesia History Personal History: No History of Anesthesia Complications Family History: No Family History of Anesthesia Complications Exercise Tolerance Exercise Tolerance: Metabolic Equivalents>4 Pertinent Negatives Pertinent Negatives: No Symptoms of GERD, No Major Cardiovascular Symptoms or Complaints, No Major Pulmonary Symptoms or Complaints and No History of CVA/TIA Cardiac & Pulmonary Exam Cardiac Exam: Normal S1/S2 Heart Sounds Pulmonary Exam: Clear Bilateral Breath Sounds Implantable Cardiac Device Does patient have a Pacemaker or an ICD?: No Airway Exam Known Difficult Airway: No Mallampati Class: 2 Mouth Opening: Normal (> 3cm) Thyromental Distance: Greater than 3 cm Neck Range of Motion: Full ROM Neck Circumference: Normal Teeth Condition: Normal Dentition ASA Classification ASA Score: ASA 2 Emergency Case?: No NPO Status NPO Status: NPO Clears >2 hours, Solids >8 hours Status Status: Negative HCG Anesthesia Plan Resuscitation Status: Full Code Anesthesia Technique: General Anesthesia Airway Planned: Natural Airway Monitors Used: Standard Monitors
[2025-04-13 07:20] VITALS: BMI 23.8
--- NOTE | 2025-04-13 07:32 | BOWEL_PTH ---
PATIENT: Idalmis Bryant LOC: [facility] U#:[id number] AGE/SX: 50/F ROOM: RE04/13/[address]: Jed Coleman MD : [id number] BED: DIS: 04/13/2025 SPEC #: [id number] RECD: 04/13/25 12:01 STATUS: BARRY REHoward #: [id number] BARRY: 04/13/25 07:[address]: Jed Coleman DEPT: Surgical Specimen RECD BY: Angeli Morgan ENTERED: 04/13/25 12:06 SP TYPE: Bowel OTHR DR: Primitivo Levy Tissues: 1 - BIOPSY BOWEL 2 - BIOPSY BOWEL Procedures: GROSS AND MICRO LEVEL 4 Comments: [id number]
[2025-04-13 07:52] VITALS: BP 101/55; BP 87/43; PULSE 77; PULSE 87; RESP 16; TEMP 36.4; O2SAT 100; O2SAT 99
--- NOTE | 2025-04-13 08:01 | W.ANESPOSTOP ---
Postoperative Evaluation Date, Time and Location Date Performed: 04/13/25 Time Performed: 08:01 Patient Location: Day Surgery Unit Vital Signs Most Recent Imported Vital Signs: Most Recent Vital Signs Temp Pulse Resp BP Pulse Ox 36.2 C L 63 14 99/73 L 100 04/13/25 06:21 04/13/25 06:21 04/13/25 06:21 04/13/25 06:21 04/13/25 06:21 Pain Score Most Recent Pain Score: Most Recent Pain Score Pain Level 2 04/13/25 06:21 Assessment Mental Status: Awake (Alert & Oriented to Patient Baseline) Airway and Respiratory Function: Patent airway with normal (patient baseline) respiratory exam Cardiovascular Function: Hemodynamically Stable Hydration Status: Adequately Hydrated Nausea & Vomiting: No Nausea or Vomiting Pain: Pain is tolerable per patient Peripheral Nerve Block: Patient did not receive a nerve block
== END 2025-04-13 08:45 | disposition home or self-care (01) ==
LOC: SUR 06:15
PROVIDERS: PCP Physician Assistant; Visit Provider Surgery
PROC: 0DJD8ZZ Inspection of Lower Intestinal Tract, Via Natural or Artificial Opening Endoscopic (ICD-10-PCS; CPT 45378; principal; 2025-04-13 07:30)
DX: Z12.11 Encounter for screening for malignant neoplasm of colon (principal); K62.1 Rectal polyp; K63.5 Polyp of colon; K57.30 Diverticulosis of large intestine without perforation or abscess without bleeding; Z80.0 Family history of malignant neoplasm of digestive organs
CPT/HCPCS: 45380; 81025; 88305; J2704